=== PATIENT | male | born 1950 | race Caucasian/White ===

== ENCOUNTER 2018-05-25 15:17 | Inpatient (IN) | payer MEDICARE, BC ==
--- NOTE | 2018-05-25 15:58 | PCM.HP ---
H&P History of Present Illness - General Date of Service: 05/25/18 Admit Problem/Dx: Admission Diagnosis/Problem Admission Diagnosis/Problem Hyponatremia Source of Information: Patient, Family () History Limitations: Reports: No Limitations - History of Present Illness Initial Comments - Free Text/Narative: Mr. Calhoun is a 67 yo male with PMH only significant for an episode of atrial flutter for which he has had a successful ablation who presented to clinic today for evaluation of ongoing diarrhea for the past 10 days. He has had a decreased appetite as well as nausea. He has not been vomiting. He has been drinking lots of fluids but has not been eating well due to food not tasting good. He has been bloated and felt full of gas but is passing less gas than usual. He has had at least 4 bowel movements today consisting of loose, yellow stool. No blood in the stool. He has not had any abdominal pain. No fever. About twice/day, he has had sweats followed by chills. He was seen in clinic earlier this week for evaluation and has been set up for a colonoscopy in mid- May. Over the past 2-3 days since that visit, he has been more off balance and is not ambulating as well as usual. He also has pain in both of his ankles as well. He has had mild rhinorrhea and cough but nothing significant. He denies any burning with urination and has not had any skin rashes or redness. He has not taken anything for his symptoms. He denies any travel outside of [place] in the past 3 months. He does not believe he has taken antibiotics in the past 3 months but also had a lot of dental work last year and is not sure if he took antibiotics for any of this. His last dental work was 3 months ago. No headache or back pain. - Related Data Allergies/Adverse Reactions: Allergies Allergy/AdvReac Type Severity Reaction Status Date / Time No Known Allergies Allergy Verified 05/11/15 16:32 Home Medications: Home Meds . [No Known Home Meds] 05/11/15 [History] Past Medical History - Past Health History Medical/Surgical History: Denies Medical/Surgical History Cardiovascular History: Reports: Afib, Other (See Below) Other Cardiovascular History: afib with ablation 2015 Other Gastrointestinal History: Recent change in bowel habits with diarrhea Musculoskeletal History: Reports: Other (See Below) Other Musculoskeletal History: hx of swollen ankles with worsening mobility - Past Surgical History Cardiovascular Surgical History: Reports: Cardiac Ablation Musculoskeletal Surgical History: Reports: None Social & Family History - Family History Cardiac: Reports: Heart Failure Oncologic: Reports: Liver - Tobacco Use Smoking Status *Q: Current Every Day Smoker Years of Tobacco use: 50 Packs/Tins Daily: 0.5 - Caffeine Use Caffeine Use: Reports: Coffee - Alcohol Use Days Per Week of Alcohol Use: 7 Number of Drinks Per Day: 2 Total Drinks Per Week: 14 Alcohol Use in Last Twelve Months: Yes - Recreational Drug Use Recreational Drug Use: No - Living Situation & Occupation Living situation: Reports: , with Significant Other Occupation: Retired H&P Review of Systems - Review of Systems: Review Of Systems: See Below General: Reports: Chills, Malaise, Decreased Appetite HEENT: Reports: No Symptoms Pulmonary: Reports: No Symptoms Cardiovascular: Reports: No Symptoms Gastrointestinal: Reports: Anorexia, Diarrhea, Flatus, Nausea Genitourinary: Reports: No Symptoms Musculoskeletal: Reports: Joint Pain, Joint Swelling Skin: Reports: No Symptoms Neurological: Reports: No Symptoms Hematologic/Lymphatic: Reports: No Symptoms Exam - Exam Exam: See Below - Vital Signs Weight: 95.481 kg - Exam General: Alert, Oriented, Cooperative HEENT: Conjunctiva Clear, Mucosa Moist & [place], Posterior Pharynx Clear, Pupils Equal, Pupils Reactive, TMs Clear Neck: Supple, Trachea Midline. No: Lymphadenopathy, Thyromegaly Lungs: Clear to Auscultation, Normal Respiratory Effort Cardiovascular: Regular Rate, Regular Rhythm, Normal S1, Normal S2 GI/Abdominal Exam: Normal Bowel Sounds, Soft, Non-Tender, No Organomegaly, No Mass, Distended Extremities: Normal Capillary Refill, Joint Swelling (both ankles (R>L) edematous and tender to palpation; active ROM is limited by edema; passive ROM is normal and without increase in pain; no erythema) Peripheral Pulses: 2+: Radial (L), Radial (R) Skin: Warm, Dry, Intact *Q Meaningful Use (ADM) - VTE *Q VTE Anticoagulation Contraindications: Med/TX Not Indicated/Need - Problem List (1) Hyponatremia SNOMED Code(s): 63335605 ICD Code: E87.1 - HYPO-OSMOLALITY AND HYPONATREMIA Status: Acute Current Visit: Yes (2) Acute kidney injury SNOMED Code(s): 57208529 ICD Code: N17.9 - ACUTE KIDNEY FAILURE, UNSPECIFIED Status: Acute Current Visit: Yes (3) SIRS (systemic inflammatory response syndrome) SNOMED Code(s): 323434460 ICD Code: R65.10 - SIRS OF NON-INFECTIOUS ORIGIN W/O ACUTE ORGAN DYSFUNCTION Status: Acute Current Visit: Yes (4) Ankle swelling SNOMED Code(s): 852638488 ICD Code: M25.473 - EFFUSION, UNSPECIFIED ANKLE Status: Acute Current Visit: Yes (5) Diarrhea SNOMED Code(s): 91340423 ICD Code: R19.7 - DIARRHEA, UNSPECIFIED Status: Acute Current Visit: Yes Problem List Initiated/Reviewed/Updated: Yes Orders Last 24hrs: Active Orders 24 hr Category Date Time Status Admission Status [Patient Status] [ADT] Routine ADT 05/25/18 15:18 Active Notify Provider Vital Signs [RC] ASDIRECTED Care 05/25/18 15:43 Active Oxygen Therapy [RC] PRN Care 05/25/18 15:42 Active Up With Assistance [RC] ASDIRECTED Care 05/25/18 15:42 Active VTE/DVT Education [RC] PER UNIT ROUTINE Care 05/25/18 15:42 Active Vital Signs [RC] Q4H Care 05/25/18 15:42 Active Regular Diet [DIET] Diet 05/25/18 Dinner Active BASIC METABOLIC PANEL,BMP [CHEM] Routine Lab 05/26/18 05:11 Ordered C-REACTIVE PROTEIN [CHEM] Routine Lab 05/26/18 05:11 Ordered C-REACTIVE PROTEIN [CHEM] Stat Lab 05/25/18 15:42 Ordered CBC WITH AUTO DIFF [HEME] Routine Lab 05/26/18 05:11 Ordered CULTURE BLOOD [BC] Stat Lab 05/25/18 15:42 Ordered CULTURE BLOOD [BC] Stat Lab 05/25/18 15:42 Ordered SEDIMENTATION RATE AUTO [HEME] Routine Lab 05/26/18 05:11 Ordered SEDIMENTATION RATE AUTO [HEME] Stat Lab 05/25/18 15:42 Ordered Sodium Chloride 0.9% [Normal Saline] 1,000 ml Med 05/25/18 15:45 Ordered IV ASDIRECTED Anticoagulation Contraindications VTE [AST] Per Unit Oth 05/25/18 15:42 Ordered Routine Blood Culture x2 Reflex Set [OM.PC] Stat Oth 05/25/18 15:42 Ordered Resuscitation Status Routine Resus Stat 05/25/18 15:42 Ordered Medication Orders Sodium Chloride (Normal Saline) 1,000 mls @ 100 mls/hr IV ASDIRECTED [facility] Assessment/Plan Comment:: 67 yo male admitted with hyponatremia and LANEY after presenting with diarrhea, weakness, and gait imbalance. #1 Hyponatremia #2 Acute Kidney Injury - Likely secondary to inadequate food intake with persistent plain water intake. - Patient is also dehydrated. - Therefore, first step would be to rehydrate. - NS @ 100 cc/hr ordered. - Recheck sodium in the am. #3 SIRS - Meets SIRS criteria with tachycardia and leukocytosis (19,000 in clinic). - No source identified to this point; therefore, holding off on antibiotics. - Only symptoms are GI but his CT scan was negative for any bacterial infection. - U/A negative in clinic. Lungs clear and he has no symptoms of pneumonia. No skin symptoms or findings on exam. - Chills twice/day raises concern for bacteremia; therefore, blood cultures also obtained. - Overall symptoms do raise concern for possible rheumatologic disease. Many symptoms could also be explained by the hyponatremia and should improve if that is the case. - CRP and ESR were obtained to help clarify; CRP is quite elevated, ESR less so. As above, no definite source. - Will repeat labs in the am and go from there. #4 Ankle Swelling - No evidence of infection. - As above, will do IV fluids overnight and reassess labs and the patient in the am. #5 Diarrhea - Likely viral; however, further work-up is indicated given need for hospital admission. - Will do c. difficile testing. - Patient is already set up for colonoscopy later this month. Patient is admitted to [facility] for further evaluation and management. Starting with IV fluids as above and then reassessing in the am. Hold off on VTE prophylaxis as it is anticipated he will either be discharged or transferred within 48 hours. Code status is DNR/DNI - discussed with patient on admission. Patient signed out to ER provider also covering hospital patients tomorrow.
[2018-05-25] MEDS: Sodium Chloride 0.9% 1,000 ML IV SCH (16:54)
[2018-05-26] MEDS ORDERED: Acetaminophen 325 MG Tab PO PRN (01:45)
[2018-05-26] MEDS: Sodium Chloride 0.9% 1,000 ML IV SCH ×2 (02:15→12:14)
[2018-05-26 08:55] LABS: CHLORIDE,CL 91 mmol/L (98-107)
[2018-05-26 08:59] LABS: ANION GAP 13.2 mmol/L (10-20); SODIUM,NA 127 mmol/L (136-145)
[2018-05-26] MEDS ORDERED: cefTRIAXone 1 GM Vial IVPUSH SCH (11:00)
--- NOTE | 2018-05-26 12:40 | PCM.PN ---
- General Info Date of Service: 05/26/18 Admission Dx/Problem (Free Text): Admission Diagnosis/Problem Admission Diagnosis/Problem Hyponatremia Functional Status: Reports: Pain Controlled, Tolerating Diet. Denies: Ambulating (unsteady on his feet, needing to hold on to materials ) - Review of Systems General: Reports: Fever, Fatigue HEENT: Reports: No Symptoms Pulmonary: Reports: No Symptoms Cardiovascular: Reports: No Symptoms Gastrointestinal: Reports: No Symptoms Genitourinary: Reports: No Symptoms Musculoskeletal: Reports: No Symptoms Skin: Reports: No Symptoms Neurological: Reports: No Symptoms Psychiatric: Reports: No Symptoms - Patient Data Vitals - Most Recent: Last Vital Signs Temp 37.7 C 05/26/18 10:00 Pulse 87 05/26/18 06:00 Resp 22 H 05/26/18 10:00 BP 148/89 H 05/26/18 10:00 Pulse Ox 95 05/26/18 10:00 Weight - Most Recent: 95.481 kg I&O - Last 24 Hours: Intake & Output 05/25/18 05/26/18 05/26/18 22:59 06:59 14:59 Intake Total 200 1750 1100 Output Total 250 1400 Balance -50 350 1100 Lab Results Last 24 Hours: Laboratory Results - last 24 hr 05/25/18 05/25/18 05/26/18 Range/Units 15:55 15:55 07:55 WBC 17.6 H (4.0-10.0) x10^3/uL RBC 4.47 L (4.5-6.0) x10^6/uL Hgb 14.9 D (14.0-18.0) g/dL Hct 42.5 (40.0-52.0) % MCV 95.1 H D (78.0-93.0) fL MCH 33.3 H (26.0-32.0) pg MCHC 35.1 (32.0-36.0) g/dL RDW Coeff of Marisel 13.4 (10.0-15.0) % Plt Count 149 D (130-400) x10^3/uL Add Manual Diff Yes Neutrophils % (Manual) 69 (50-80) % Band Neutrophils % 27 H (0-6) % Lymphocytes % (Manual) 1 L (25-50) % Monocytes % (Manual) 3 (2-11) % Platelet Estimate Adequate Giant Platelets Occasional H Anisocytosis 1+ slight H ESR 36 H 33 H (0-16) mm/hr Sodium (136-145) mmol/L Potassium (3.5-5.1) mmol/L Chloride (98-107) mmol/L Carbon Dioxide (21-32) mmol/L Anion Gap (10-20) mmol/L BUN (7-18) mg/dL Creatinine (0.70-1.30) mg/dL Est Cr Clr Drug Dosing mL/min Estimated GFR (MDRD) Glucose (74-106) mg/dL Calcium (8.5-10.1) mg/dL C-Reactive Protein 29.6 H (<=0.9) mg/dL 05/26/18 Range/Units 07:55 WBC (4.0-10.0) x10^3/uL RBC (4.5-6.0) x10^6/uL Hgb (14.0-18.0) g/dL Hct (40.0-52.0) % MCV (78.0-93.0) fL MCH (26.0-32.0) pg MCHC (32.0-36.0) g/dL RDW Coeff of Marisel (10.0-15.0) % Plt Count (130-400) x10^3/uL Add Manual Diff Neutrophils % (Manual) (50-80) % Band Neutrophils % (0-6) % Lymphocytes % (Manual) (25-50) % Monocytes % (Manual) (2-11) % Platelet Estimate Giant Platelets Anisocytosis ESR (0-16) mm/hr Sodium 127 L* (136-145) mmol/L Potassium 3.2 L (3.5-5.1) mmol/L Chloride 91 L (98-107) mmol/L Carbon Dioxide 26 (21-32) mmol/L Anion Gap 13.2 (10-20) mmol/L BUN 17 (7-18) mg/dL Creatinine 0.9 (0.70-1.30) mg/dL Est Cr Clr Drug Dosing 87.54 mL/min Estimated GFR (MDRD) > 60 Glucose 131 H (74-106) mg/dL Calcium 8.8 (8.5-10.1) mg/dL C-Reactive Protein 29.1 H (<=0.9) mg/dL Vikas Results Last 24 Hours: Microbiology 05/25/18 15:55 Anaerobic Blood Culture - Preliminary Blood - Venous Gram Positive Cocci 05/25/18 16:08 Anaerobic Blood Culture - Final Blood - Venous - Lab Draw Med Orders - Current: Current Medications Acetaminophen (Tylenol) 650 mg PO Q4H PRN PRN Reason: Fever Last Admin: 05/26/18 01:35 Dose: 650 mg Ceftriaxone Sodium (Rocephin) 1 gm IVPUSH DAILY [facility] Last Admin: 05/26/18 10:42 Dose: 1 gm Sodium Chloride (Normal Saline) 1,000 mls @ 100 mls/hr IV ASDIRECTED [facility] Last Admin: 05/26/18 12:14 Dose: 100 mls/hr - Exam General: Alert, Oriented HEENT: Pupils Equal, Pupils Reactive, EOMI Neck: Supple Lungs: Clear to Auscultation, Normal Respiratory Effort Cardiovascular: Regular Rate, Regular Rhythm GI/Abdominal Exam: Normal Bowel Sounds, Soft, Non-Tender, No Distention Back Exam: Normal Inspection, Full Range of Motion Extremities: Joint Swelling, Leg Pain Peripheral Pulses: 2+: Dorsalis Pedis (L), Dorsalis Pedis (R) Skin: Warm, Dry, Intact Psy/Mental Status: Alert, Normal Affect, Normal Mood - Problem List & Annotations (1) Acute kidney injury SNOMED Code(s): 61027747 Code(s): N17.9 - ACUTE KIDNEY FAILURE, UNSPECIFIED Status: Acute Current Visit: Yes (2) Ankle swelling SNOMED Code(s): 151184845 Code(s): M25.473 - EFFUSION, UNSPECIFIED ANKLE Status: Acute Current Visit: Yes (3) Diarrhea SNOMED Code(s): 26807046 Code(s): R19.7 - DIARRHEA, UNSPECIFIED Status: Acute Current Visit: Yes (4) Hyponatremia SNOMED Code(s): 88149700 Code(s): E87.1 - HYPO-OSMOLALITY AND HYPONATREMIA Status: Acute Current Visit: Yes (5) SIRS (systemic inflammatory response syndrome) SNOMED Code(s): 749699389 Code(s): R65.10 - SIRS OF NON-INFECTIOUS ORIGIN W/O ACUTE ORGAN DYSFUNCTION Status: Acute Current Visit: Yes - Problem List Review Problem List Initiated/Reviewed/Updated: Yes - My Orders Last 24 Hours: My Active Orders 05/26/18 01:45 Acetaminophen [Tylenol] 650 mg PO Q4H PRN 05/26/18 10:24 Dietary Supplements [RC] 10,20 05/26/18 11:00 cefTRIAXone [Rocephin] 1 gm IVPUSH DAILY 05/26/18 12:26 Chest 2V [CR] Routine 05/26/18 12:28 PRO B-TYPE NATRIUR PEPT,BNPPRO [CHEM] Stat TROPONIN I [CHEM] Stat - Plan Plan:: 67 yo male admitted with hyponatremia and LANEY after presenting with diarrhea, weakness, and gait imbalance. Patient had an unremarkable night. Patient continues to have issues with ambulating. He is unsteady on his feet and is to use assistive devices staff to help ambulate. He denies any pain or discomfort. Lab results this morning did show that he does have gram-positive cocci in his blood. Her symptoms section is still unknown. Hyponatremia and acute kidney injury. #1 Hyponatremia - continue with oral and IV fluids #2 Acute Kidney Injury -continue with oral and IV fluids -Pt did eat breakfast this am and states he does have an appetite for lunch #3 SIRS - Pt continues to meets SIRS criteria with tachycardia and leukocytosis 19,000 today. - No source identified to this point; - Blood cultures have gram+ cocci present. Will start Rocephin this am - Chest x-ray ordered. #4 Ankle Swelling - Swelling continues to remain in bilateral ankles which he has not had issues with in the past #5 Diarrhea -has improved and nursing has not been able to obtain a sample yet.
[2018-05-26 15:01] VITALS: BP 134/90
--- NOTE | 2018-05-26 15:01 | CR ---
[id number] RAD/RAD Chest PA And Lateral EXAM: RAD Chest PA And Lateral INDICATION: POSITIVE BLOOD CULTURES. COMPARISON: None. DISCUSSION: Cardiomediastinal silhouette is enlarged. Elevation left hemidiaphragm. No infiltrate, effusion, pneumothorax, or edema. IMPRESSION: No acute cardiopulmonary abnormality. Brennen Piedra DO 05/26/18 1500 Thank you for allowing us to participate in the care of your patient.
--- NOTE | 2018-05-26 15:03 | CR ---
[id number] RAD/RAD Ankle Right 2V EXAM: 2 VIEWS RIGHT ANKLE. INDICATION: SWELLING,INFECTION. COMPARISON: None. 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 There is loss of the joint space at the ankle. Multiple osseous bodies are identified. There is extensive soft tissue edema. No evidence of acute fracture or dislocation. Small plantar calcaneal spur. Moderate right ankle joint effusion. IMPRESSION: 1. As above. Brennen Piedra DO 05/26/18 1529 Thank you for allowing us to participate in the care of your patient.
--- NOTE | 2018-05-26 15:04 | CR ---
[id number] RAD/RAD Ankle Left 2V EXAM: 2 VIEWS LEFT ANKLE. INDICATION: SWELLING,INFECTION. COMPARISON: None. DISCUSSION: Moderate degenerative changes of the right ankle and midfoot. There is loss of the joint space at the ankle. There is associated soft tissue edema. No evidence of acute fracture or dislocation. Small plantar calcaneal spur. Small right ankle joint effusion. IMPRESSION: As above. Brennen Piedra DO 05/26/18 1503 Thank you for allowing us to participate in the care of your patient.
--- NOTE | 2018-05-26 15:41 | PCM.DCSUM1 ---
Discharge Summary - Hospital Course HPI Initial Comments: Mr. Calhoun is a 67 yo male with PMH only significant for an episode of atrial flutter for which he has had a successful ablation who presented to clinic 2 days ago for evaluation of ongoing diarrhea for the past 10 days. He has had a decreased appetite as well as nausea. He has not been vomiting. He has been drinking lots of fluids but has not been eating well due to food not tasting good. He has been bloated and felt full of gas but is passing less gas than usual. He has had at least 4 bowel movements today consisting of loose, yellow stool. No blood in the stool. He has not had any abdominal pain. No fever. About twice/day, he has had sweats followed by chills. He was seen in clinic earlier this week for evaluation and has been set up for a colonoscopy in mid- May. Over the past 2-3 days since that visit, he has been more off balance and is not ambulating as well as usual. He also has pain in both of his ankles as well. He has had mild rhinorrhea and cough but nothing significant. He denies any burning with urination and has not had any skin rashes or redness. He has not taken anything for his symptoms. He denies any travel outside of [place] in the past 3 months. He does not believe he has taken antibiotics in the past 3 months but also had a lot of dental work last year and is not sure if he took antibiotics for any of this. His last dental work was 3 months ago. No headache or back pain. During his Hospitalization he continued to have fevers, difficultly ambulating, and increase in lowered extremity swelling. Labs were completed, x-ray of chest completed. Pt was given Rocephin and Vancomycin. 3 blood cultures came back positive. Consultation was completed with Dr. Whittaker who has agreed to accept this patient as a direct acute care admit. Pt will be transported via EMS for further evaluation and treatment at a higher level of care. Diagnosis: Stroke: No - Discharge Data Discharge Date: 05/26/18 Discharge Disposition: DC/Tfer to Acute Hospital 02 Condition: Good - Discharge Diagnosis/Problem(s) (1) Acute kidney injury SNOMED Code(s): 50619895 ICD Code: N17.9 - ACUTE KIDNEY FAILURE, UNSPECIFIED Status: Acute Current Visit: Yes (2) Ankle swelling SNOMED Code(s): 004535203 ICD Code: M25.473 - EFFUSION, UNSPECIFIED ANKLE Status: Acute Current Visit: Yes (3) Diarrhea SNOMED Code(s): 46420678 ICD Code: R19.7 - DIARRHEA, UNSPECIFIED Status: Acute Current Visit: Yes (4) Hyponatremia SNOMED Code(s): 16981157 ICD Code: E87.1 - HYPO-OSMOLALITY AND HYPONATREMIA Status: Acute Current Visit: Yes (5) SIRS (systemic inflammatory response syndrome) SNOMED Code(s): 290231719 ICD Code: R65.10 - SIRS OF NON-INFECTIOUS ORIGIN W/O ACUTE ORGAN DYSFUNCTION Status: Acute Current Visit: Yes - Discharge Plan *PRESCRIPTION DRUG MONITORING PROGRAM REVIEWED*: Not Applicable *COPY OF PRESCRIPTION DRUG MONITORING REPORT IN PATIENT ZAIRA: Not Applicable Home Medications: Home Meds . [No Known Home Meds] 05/11/15 [History] Oxygen Therapy Mode: Room Air - Discharge Summary/Plan Comment DC Time >30 min.: Yes (transfer to higher level of care ) - General Info Date of Service: 05/26/18 Admission Dx/Problem (Free Text: Admission Diagnosis/Problem Admission Diagnosis/Problem Hyponatremia Functional Status: Reports: Pain Controlled, Tolerating Diet. Denies: Ambulating (needing to use walker and staff assistance ) - Review of Systems General: Reports: Weakness, Fatigue HEENT: Reports: No Symptoms Pulmonary: Reports: No Symptoms Cardiovascular: Reports: No Symptoms Musculoskeletal: Reports: Leg Pain Skin: Reports: No Symptoms Neurological: Reports: No Symptoms Psychiatric: Reports: No Symptoms - Patient Data Vitals - Most Recent: Last Vital Signs Temp 37.4 C 05/26/18 14:00 Pulse 89 05/26/18 14:00 Resp 22 H 05/26/18 14:00 BP 134/90 05/26/18 14:00 Pulse Ox 95 05/26/18 14:00 Weight - Most Recent: 95.481 kg I&O - Last 24 hours: Intake & Output 05/26/18 05/26/18 05/26/18 06:59 14:59 22:59 Intake Total 1750 1100 Output Total 1400 Balance 350 1100 Lab Results - Last 24 hrs: Laboratory Results - last 24 hr 05/25/18 05/25/18 05/26/18 Range/Units 15:55 15:55 07:55 WBC 17.6 H (4.0-10.0) x10^3/uL RBC 4.47 L (4.5-6.0) x10^6/uL Hgb 14.9 D (14.0-18.0) g/dL Hct 42.5 (40.0-52.0) % MCV 95.1 H D (78.0-93.0) fL MCH 33.3 H (26.0-32.0) pg MCHC 35.1 (32.0-36.0) g/dL RDW Coeff of Marisel 13.4 (10.0-15.0) % Plt Count 149 D (130-400) x10^3/uL Add Manual Diff Yes Neutrophils % (Manual) 69 (50-80) % Band Neutrophils % 27 H (0-6) % Lymphocytes % (Manual) 1 L (25-50) % Monocytes % (Manual) 3 (2-11) % Platelet Estimate Adequate Giant Platelets Occasional H Anisocytosis 1+ slight H ESR 36 H 33 H (0-16) mm/hr Sodium (136-145) mmol/L Potassium (3.5-5.1) mmol/L Chloride (98-107) mmol/L Carbon Dioxide (21-32) mmol/L Anion Gap (10-20) mmol/L BUN (7-18) mg/dL Creatinine (0.70-1.30) mg/dL Est Cr Clr Drug Dosing mL/min Estimated GFR (MDRD) Glucose (74-106) mg/dL Calcium (8.5-10.1) mg/dL Troponin I (<=0.056) ng/mL C-Reactive Protein 29.6 H (<=0.9) mg/dL NT-Pro-B Natriuret Pep (<=125) pg/mL 05/26/18 05/26/18 Range/Units 07:55 07:55 WBC (4.0-10.0) x10^3/uL RBC (4.5-6.0) x10^6/uL Hgb (14.0-18.0) g/dL Hct (40.0-52.0) % MCV (78.0-93.0) fL MCH (26.0-32.0) pg MCHC (32.0-36.0) g/dL RDW Coeff of Marisel (10.0-15.0) % Plt Count (130-400) x10^3/uL Add Manual Diff Neutrophils % (Manual) (50-80) % Band Neutrophils % (0-6) % Lymphocytes % (Manual) (25-50) % Monocytes % (Manual) (2-11) % Platelet Estimate Giant Platelets Anisocytosis ESR (0-16) mm/hr Sodium 127 L* (136-145) mmol/L Potassium 3.2 L (3.5-5.1) mmol/L Chloride 91 L (98-107) mmol/L Carbon Dioxide 26 (21-32) mmol/L Anion Gap 13.2 (10-20) mmol/L BUN 17 (7-18) mg/dL Creatinine 0.9 (0.70-1.30) mg/dL Est Cr Clr Drug Dosing 87.54 mL/min Estimated GFR (MDRD) > 60 Glucose 131 H (74-106) mg/dL Calcium 8.8 (8.5-10.1) mg/dL Troponin I < 0.017 (<=0.056) ng/mL C-Reactive Protein 29.1 H (<=0.9) mg/dL NT-Pro-B Natriuret Pep 599 H (<=125) pg/mL WHIT Results - Last 24 hrs: Microbiology 05/25/18 15:55 Aerobic Blood Culture - Preliminary Blood - Venous Gram Positive Cocci In [facility] Anaerobic Blood Culture - Preliminary Gram Positive Cocci 05/25/18 16:08 Aerobic Blood Culture - Preliminary Blood - Venous - Lab Draw Gram Positive Cocci In [facility] Anaerobic Blood Culture - Final Med Orders - Current: Current Medications Acetaminophen (Tylenol) 650 mg PO Q4H PRN PRN Reason: Fever Last Admin: 05/26/18 01:35 Dose: 650 mg Ceftriaxone Sodium (Rocephin) 1 gm IVPUSH DAILY [facility] Last Admin: 05/26/18 10:42 Dose: 1 gm Sodium Chloride (Normal Saline) 1,000 mls @ 100 mls/hr IV ASDIRECTED [facility] Last Admin: 05/26/18 12:14 Dose: 100 mls/hr Vancomycin HCl 1,250 mg/ (Sodium Chloride) 250 mls @ 200 mls/hr IV STAT ONE Stop: 05/26/18 16:31 Last Admin: 05/26/18 15:33 Dose: 200 mls/hr - Exam General: Reports: Alert, Oriented HEENT: Reports: Pupils Equal, Pupils Reactive, EOMI, Mucous Membr. Moist/[place] Neck: Reports: Supple Lungs: Reports: Clear to Auscultation, Normal Respiratory Effort Cardiovascular: Reports: Regular Rate, Regular Rhythm GI/Abdominal Exam: Normal Bowel Sounds, Soft, Non-Tender Back Exam: Reports: Normal Inspection, Full Range of Motion Extremities: Normal Inspection, Normal Range of Motion, Non-Tender, Joint Swelling (bilateral lower swelling at ankle joint ) Skin: Reports: Warm, Dry, Intact Psy/Mental Status: Reports: Alert, Normal Affect, Normal Mood *Q Meaningful Use (DIS) - VTE *Q VTE Anticoagulation Contraindications: Med/TX Not Indicated/Need
== END 2018-05-26 17:22 | disposition short-term general hospital (02) | DRG 683 ==
LOC: VM.MS 15:18
PROVIDERS: ADMIT Family Medicine; ATTEND Family Medicine
DX: N17.9 Acute kidney failure, unspecified (principal); E87.1 Hypo-osmolality and hyponatremia; R65.10 Systemic inflammatory response syndrome (SIRS) of non-infectious origin without acute organ dysfunction; Z66 Do not resuscitate; M25.473 Effusion, unspecified ankle; R19.7 Diarrhea, unspecified; E86.0 Dehydration; I48.91 Unspecified atrial fibrillation; F17.210 Nicotine dependence, cigarettes, uncomplicated
CPT/HCPCS: 36415; 71046; 73600-LT; 73600-RT; 80048; 83880; 84484; 85025; 85652; 86140; 87040; 87077; A9270-GY; J0696; J3370; J7030; J7050

== ENCOUNTER 2018-07-24 08:50 | Day surgery (SDC) | payer MEDICARE, BC ==
[~2018-07-24 08:50] MED LIST: Heparin Sodium 100 Units/ML 3 ML Syringe IVPUSH PRN; Sodium Chloride 0.9% 10 ML Syringe FLUSH PRN
[2018-07-24] MEDS: Lactated Ringers 1,000 ML IV SCH (09:44)
[2018-07-24] MEDS ORDERED: Propofol 200 MG/20 ML SDV ONE (11:03)
[2018-07-24] MEDS ORDERED: Midazolam 1 MG/ML 2 ML SDV ONE (11:03)
[2018-07-24] MEDS ORDERED: fentaNYL 100 MCG/2 ML SDV ONE (11:03)
[2018-07-24] MEDS ORDERED: Lidocaine 4% 5 ML Amp ONE (11:25)
[2018-07-24 12:54] VITALS: BP 156/85
--- NOTE | 2018-07-24 12:58 | OR ---
PREOPERATIVE DIAGNOSIS: Anemia. POSTOPERATIVE DIAGNOSIS: Diffuse hemorrhagic gastritis with multiple superficial antral ulcerations. PROCEDURE PROPOSED: Upper gastrointestinal panendoscopy. PROCEDURE DONE: Upper gastrointestinal panendoscopy with antral biopsies. INDICATION: This is a 67-year-old gentleman referred for endoscopy due to having some blood in the stool and anemia. TECHNIQUE: The patient was brought to the endoscopy suite, placed in left lateral decubitus position. He was sedated per [employer] with propofol. The flexible video gastroscope was then passed transorally and under visualization as well into the duodenum. The proximal duodenum revealed some duodenitis in the duodenal bulb without true ulcer. The pre-pyloric antral region revealed several superficial ulcerations and gastritis. He had a lot of petechial hemorrhage throughout the gastric mucosa indicating that he was losing some blood from his stomach. A couple of antral biopsies were taken to rule out H. pylori. The body of the stomach, otherwise, looked quite normal and healthy. The GE junction revealed a rather small insignificant hiatal hernia without any active GERD. There were no signs of any Schatzki's ring or stenosis, and the remainder of the esophagus was normal. The scope was then withdrawn. The patient tolerated the procedure well. FINAL IMPRESSION: 1. Diffuse gastritis with petechial hemorrhage. 2. Multiple superficial antral ulcerations and duodenitis. PLAN: The patient will be treated with Protonix 40 mg daily. He needs to avoid caffeine, alcohol, nicotine, and ibuprofen and follow up with [facility] for followup hemoglobin checks. SCM: 07/24/2018 12:26:30 MODL: 07/24/2018 12:46:40 /[id number]
--- NOTE | 2018-07-24 13:03 | OR ---
PREOPERATIVE DIAGNOSIS: Gastrointestinal blood loss with anemia. POSTOPERATIVE DIAGNOSIS: Diverticulosis with multiple colonic polyps, 10 to 11. PROCEDURE PROPOSED: Total flexible colonoscopy. PROCEDURE DONE: Total flexible colonoscopy with multiple hot snare polypectomies and multiple cold biopsy forceps polypectomies, 6 hot snares and 5 cold biopsies. INDICATION: This is a 67-year-old gentleman who has not had a colonoscopy and now presents with some anemia and evidence of GI blood loss. He comes in for recommended colonoscopy. TECHNIQUE: The patient was already sedated and placed in the left lateral decubitus position. His prostate was palpably normal. The flexible video colonoscope was then passed transanally and under visualization and advanced to the cecum. He was found to have multiple polyps throughout the examination as well as sigmoid diverticulosis. A cecal polyp was removed by cold biopsy forceps. I then removed several polyps in the hepatic flexure area, 2 by hot snare forceps, 1 by cold biopsy forceps. He then had more polyps again at 60 cm from the anal verge, more in the area of the splenic flexure and proximal descending colon. Some of these were removed by hot snare polypectomy technique and others by cold biopsy forceps polypectomy technique. He then was found to have polyps at 50, 40, and 20 cm. Several of these measured up to a centimeter in size. The others were more in the range of 2 to 3 mm. They were retrieved. Some of them were retrieved with the snare itself, others were retrieved with suction. Several of them appeared fairly friable and could have certainly made a stool test positive. The rectum was spared of any polyps, and the scope was then withdrawn. He tolerated the procedure well. FINAL IMPRESSION: 1. Multiple colonic polyps, 10 or 11 removed by combination of cold biopsy forceps and hot snare polypectomy technique. 2. Sigmoid diverticulosis. PLAN: He will be sent a letter with pathology report. Due to the multitude of polyps, I feel he should have a short-term followup in about 2 years' time to make sure he has not formed any new polyps. SCM: 07/24/2018 12:26:30 MODL: 07/24/2018 12:51:06 /[id number]
== END 2018-07-24 13:30 | disposition home or self-care (01) ==
LOC: VM.SDS 08:50
PROVIDERS: ATTEND Surgery
DX: K29.71 Gastritis, unspecified, with bleeding (principal); K25.9 Gastric ulcer, unspecified as acute or chronic, without hemorrhage or perforation; K29.80 Duodenitis without bleeding; D12.0 Benign neoplasm of cecum; D12.4 Benign neoplasm of descending colon; D12.3 Benign neoplasm of transverse colon; D12.5 Benign neoplasm of sigmoid colon; K57.30 Diverticulosis of large intestine without perforation or abscess without bleeding; D64.9 Anemia, unspecified; I10 Essential (primary) hypertension; F17.210 Nicotine dependence, cigarettes, uncomplicated; Z79.899 Other long term (current) drug therapy
CPT/HCPCS: 00812; 45384; J2250; J2704; J3010; J7120

== ENCOUNTER 2020-10-22 11:24 | Day surgery (SDC) | payer MEDICARE, BC ==
[~2020-10-22 11:24] MED LIST changes: -Heparin Sodium 100 Units/ML 3 ML Syringe IVPUSH PRN; +Lactated Ringers 1,000 ML IV SCH; -Sodium Chloride 0.9% 10 ML Syringe FLUSH PRN
[2020-10-22] MEDS ORDERED: fentaNYL 100 MCG/2 ML SDV ONE (13:02)
[2020-10-22] MEDS ORDERED: Propofol 200 MG/20 ML SDV ONE ×2 (13:02→13:51)
[2020-10-22 15:12] VITALS: BP 134/67; PULSE 67
--- NOTE | 2020-10-27 11:36 | OR ---
DATE OF SURGERY: 10/22/2020. REFERRING PROVIDER: BRUNILDA Whitmore PRE-OPERATIVE DIAGNOSES: History of colon polyps. Last colonoscopy was 07/2018. Dr. Nelson had removed 10 to 11 polyps at that time. POST-OPERATIVE DIAGNOSES: 1. A total of seven small polyps removed, all using cold forceps. a. A. 2 mm at 70 cm. b. B. 3 mm and 2 mm polyps at 65 cm. c. C. 2 mm at 60 cm. d. D. 2 mm at 40 cm. e. E. 2 mm at 35 cm. f. F. 4 mm at 25 cm. 2. Mild scattered diverticulosis. 3. Normal-appearing distal ileum. PROCEDURE: Colonoscopy with polypectomy x7 using cold forceps. SURGEON: Efra Greenberg M.D. ANESTHESIA: Monitored anesthesia care. BOWEL PREP: Fair. He did require a moderate irrigation and suctioning. Harry is a 70-year-old male who was brought to the endoscopy suite after discussing risks and benefits of the procedure. Informed consent was obtained for conscious sedation and colonoscopy with or without biopsy and/or polypectomy. We also discussed possibility of missed lesions. Pre-procedure exam was unremarkable. IV, oxygen, and monitors were placed. The patient was placed in the left lateral decubitus position. Sedation was administered and a digital rectal exam was performed which unremarkable. Colonoscope was passed into the rectum and slowly advanced all the way to the cecum. Cecum was viewed and photographed. The ileocecal valve was intubated and distal ileum was normal in appearance. The colonoscope was slowly withdrawn and the mucosa was closed observed in a direct circumferential manner. The ascending colon was unremarkable. The transverse colon revealed several small polyps removed using cold forceps (see above). The descending and sigmoid colon revealed several small polyps as well, removed using cold forceps. There was some scattered mild diverticulosis. Retroflexion was performed and rectal mucosa was unremarkable. Scope was removed. The patient tolerated the procedure well. The patient was monitored until that baseline status. Discharge instructions were reviewed and the patient was discharged in good condition. COMPLICATIONS: None. TOTAL TIME: 34 minutes. ESTIMATED BLOOD LOSS: 1 to 2 mL. RECOMMENDATIONS/FOLLOW-UP: We with will await results of path report to determine ideal followup interval. I would like to kindly thank Steve Barragan for this referral. DMB: 10/22/2020 14:43:14 MODL: 10/22/2020 21:34:21 /[id number]
== END 2020-10-22 15:13 | disposition home or self-care (01) ==
LOC: VM.SDS 11:24
PROVIDERS: ATTEND Family Medicine
DX: Z12.11 Encounter for screening for malignant neoplasm of colon (principal); D12.6 Benign neoplasm of colon, unspecified; K57.30 Diverticulosis of large intestine without perforation or abscess without bleeding; K63.5 Polyp of colon; D50.9 Iron deficiency anemia, unspecified; I10 Essential (primary) hypertension; I48.92 Unspecified atrial flutter; N17.9 Acute kidney failure, unspecified; I48.91 Unspecified atrial fibrillation; F17.210 Nicotine dependence, cigarettes, uncomplicated; Z98.890 Other specified postprocedural states; Z79.899 Other long term (current) drug therapy
CPT/HCPCS: 00812; 88305; J2704; J3010; J7120

== ENCOUNTER 2024-01-04 10:03 | Day surgery (SDC) | payer MEDICARE, BC ==
[2024-01-04] MEDS: Lactated Ringers 1,000 ML IV SCH (10:21)
[2024-01-04] MEDS ORDERED: Propofol 200 MG/20 ML SDV ONE ×2 (11:40→12:16)
[2024-01-04] MEDS ORDERED: fentaNYL 100 MCG/2 ML SDV ONE (11:40)
[2024-01-04 12:50] VITALS: BP 126/66; PULSE 60
== END 2024-01-04 13:27 | disposition home or self-care (01) ==
LOC: VM.SDS 10:03
PROVIDERS: ATTEND Family Medicine
DX: Z12.11 Encounter for screening for malignant neoplasm of colon (principal); D12.6 Benign neoplasm of colon, unspecified; K63.5 Polyp of colon; Z86.0100 Personal history of colon polyps, unspecified; I10 Essential (primary) hypertension; N40.1 Benign prostatic hyperplasia with lower urinary tract symptoms; E78.00 Pure hypercholesterolemia, unspecified; Z80.0 Family history of malignant neoplasm of digestive organs
CPT/HCPCS: 00811; 88305; 99100; J2704; J3010; J7120